=== PATIENT | female | born 1950 | race Caucasian/White ===

== ENCOUNTER 2018-12-18 17:05 | Inpatient (IN) | payer MEDICARE, OTHER ==
--- NOTE | 2018-12-18 17:43 | CT ---
Head CT Technique: Multiple axial sections through the brain were obtained. Intravenous contrast was not utilized. Comparison: No prior intracranial imaging is available. Findings: Ventricles along with basal cisterns and sulci over the convexities are within normal limits. Symmetric low density findings are seen within both basal ganglia. These may represent old lacunar infarcts versus prominent perivascular spaces. No other abnormal parenchymal densities are seen. No evidence of intracranial hemorrhage. No midline shift or mass effect is seen. Bone window settings were reviewed which shows retention cyst or mucosal thickening within the anterior right ethmoid sinus which is felt to be chronic. No acute sinus findings are seen. No acute calvarial abnormality is identified. Impression: 1. Basal ganglia findings which are most likely chronic as noted above. 2. Sinus finding also felt to be chronic. 3. No acute intracranial abnormality is appreciated. If patient's symptoms warrant, MRI could then be considered to further evaluate. Diagnostic code #2
--- NOTE | 2018-12-18 18:43 | EDM.PDOC ---
ED HPI GENERAL MEDICAL PROBLEM - General Chief Complaint: Neuro Symptoms/Deficits Stated Complaint: SOB NUMBNESS IN LEGS Time Seen by Provider: 12/18/18 18:42 - History of Present Illness INITIAL COMMENTS - FREE TEXT/NARRATIVE: 67-year-old male presents emergency room with right-sided weakness At out for 40 this afternoon the patient developed some subtle weakness on the right side making a little more challenging for her to do fine motor and balance things. She noticed that she had some right sided facial numbness and that her speech was altered winter trying to write this was a little more challenging. Patient has no prior history of CVA or neurologic problems. She's had some blood pressure problems but nothing as high as she is when she presented here. She has not had any associated chest pain chest pressure no recent illnesses. The patient recently flew back into town yesterday but is otherwise felt well. She's had no chest pain chest pressure at time she's had some palpitations. When she tries to speak sometimes it feels like her words don 't come out as organized and is quickly as she is used to. - Related Data Allergies Allergy/AdvReac Type Severity Reaction Status Date / Time Latex, Natural Rubber Allergy Rash Verified 12/18/18 17:50 Home Meds: Home Meds . [No Known Home Meds] 12/18/18 [History] Past Medical History HEENT History: Reports: Impaired Vision Other HEENT History: wears eyeglasses. 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 Other Endocrine/Metabolic History: states was pre-diabetic and lost wt. Hematologic History: Reports: Anemia Dermatologic History: Reports: Psoriasis - Infectious Disease History Infectious Disease History: Reports: Chicken Pox, Measles, Mumps, Pertussis ( Whooping Cough) - Past Surgical History GI Surgical History: Reports: Colonoscopy Female Surgical History: Reports: Hysterectomy Social & Family History - Tobacco Use Smoking Status *Q: Never Smoker Second Hand Smoke Exposure: No - Caffeine Use Caffeine Use: Reports: None - Recreational Drug Use Recreational Drug Use: No ED ROS GENERAL - Review of Systems Review Of Systems: See Below Constitutional: Reports: No Symptoms HEENT: Reports: No Symptoms, Other Respiratory: Reports: No Symptoms (No vision changes) Cardiovascular: Reports: No Symptoms Endocrine: Reports: No Symptoms GI/Abdominal: Reports: No Symptoms : Reports: No Symptoms Skin: Reports: No Symptoms Neurological: Reports: Pre-Existing Deficit, Weakness, Change in Speech. Denies : Headache Psychiatric: Reports: No Symptoms ED EXAM, NEURO - Physical Exam Exam: See Below Exam Limited By: No Limitations General Appearance: Alert, No Apparent Distress Ears: Normal External Exam, Normal Canal, Hearing Grossly Normal, Normal TMs Nose: Normal Inspection, Normal Mucosa, No Blood Throat/Mouth: Normal Inspection, Normal Lips, Normal Teeth, Normal Gums, Normal Oropharynx, Normal Voice, No Airway Compromise Head Exam: Atraumatic, Normocephalic Neck: Normal Inspection, Supple, Non-Tender, Full Range of Motion Cardiovascular: Normal Peripheral Pulses, Regular Rate, Rhythm, No Edema, No Gallop, No JVD, No Murmur, No Rub GI/Abdominal: Normal Bowel Sounds, Soft, Non-Tender, No Organomegaly, No Distention, No Abnormal Bruit, No Mass Neurological: Alert, Normal Mood/Affect, Normal Dorsiflexion, CN II-XII Intact, Normal Plantar Flexion, Normal Gait, Normal Reflexes, No Motor/Sensory Deficits , Oriented x 3 Back Exam: Normal Inspection. No: CVA Tenderness (L), CVA Tenderness (R) Extremities: Normal Inspection Psychiatric: Normal Affect Skin Exam: Warm, Dry, Diaphoretic EKG INTERPRETATION Rhythm: Other (Anus rate 90 with a single PVC) Rate (Beats/Min): 90 [place]: LAD-Left Euless Deviation (Borderline) P-Wave: Present ST-T: Normal QT: Normal Comparison: NA - No Prior EKG Course - Vital Signs Text/Narrative:: Case discussed with Dr. Miguel call for the stroke service at [facility] in [place] with an NIH score of 2 he does not recommend thrombolytics or transfer at this point just routine stroke care and treatment of her hypertension. Last Recorded V/S: Last Vital Signs Temp 36.6 C 12/18/18 17:11 Pulse 98 12/18/18 17:11 Resp 18 12/18/18 17:11 BP 210/107 H 12/18/18 17:11 Pulse Ox 100 12/18/18 17:11 - Orders/Labs/Meds Orders: Active Orders 24 hr Category Date Time Status EKG 12 Lead [EKG Documentation Completion] [RC] STAT Care 12/18/18 18:39 Active Chest 1V Frontal [CR] Stat Exams 12/18/18 18:53 Taken Labs: Laboratory Tests 12/18/18 12/18/18 12/18/18 Range/Units 17:15 17:15 17:15 WBC 8.45 (3.98-10.04) K/mm3 RBC 4.75 (3.98-5.22) M/mm3 Hgb 14.4 (11.2-15.7) gm/L Hct 43.6 (34.1-44.9) % MCV 91.8 (79.4-94.8) fl MCH 30.3 (25.6-32.2) pg MCHC 33.0 (32.2-35.5) g/dl RDW Std Deviation 43.5 (36.4-46.3) fL Plt Count 245 (182-369) K/mm3 MPV 10.9 (9.4-12.3) fl Neut % (Auto) 53.0 (34.0-71.1) % Lymph % (Auto) 34.7 (19.3-51.7) % Fountain % (Auto) 9.8 (4.7-12.5) % Eos % (Auto) 2.0 (0.7-5.8) Baso % (Auto) 0.4 (0.1-1.2) % Neut # (Auto) 4.48 (1.56-6.13) K/mm3 Lymph # (Auto) 2.93 (1.18-3.74) K/mm3 Fountain # (Auto) 0.83 H (0.24-0.36) K/mm3 Eos # (Auto) 0.17 (0.04-0.36) K/mm3 Baso # (Auto) 0.03 (0.01-0.08) K/mm3 PT (9.5-12.1) SECONDS INR APTT (24-31) SECONDS Sodium 142 (136-145) mEq/L Potassium 3.6 (3.5-5.1) mEq/L Chloride 105 (98-107) mEq/L Carbon Dioxide 24 (21-32) mEq/L Anion Gap 16.6 H (5-15) BUN 15 (7-18) mg/dL Creatinine 0.8 (0.55-1.02) mg/dL Est Cr Clr Drug Dosing TNP Estimated GFR (MDRD) > 60 (>60) mL/min BUN/Creatinine Ratio 18.8 H (14-18) Glucose 113 (80-115) mg/dL POC Glucose 107 (80-115) mg/dL Calcium 9.3 (8.5-10.1) mg/dL Total Bilirubin 0.4 (0.2-1.0) mg/dL AST 23 (15-37) U/L ALT 63 H (14-59) U/L Alkaline Phosphatase 104 (46-116) U/L Troponin I (0.00-0.056) ng/mL Total Protein 8.0 (6.4-8.2) g/dl Albumin 4.1 (3.4-5.0) g/dl Globulin 3.9 gm/dL Albumin/Globulin Ratio 1.1 (1-2) 12/18/18 12/18/18 Range/Units 17:15 17:15 WBC (3.98-10.04) K/mm3 RBC (3.98-5.22) M/mm3 Hgb (11.2-15.7) gm/L Hct (34.1-44.9) % MCV (79.4-94.8) fl MCH (25.6-32.2) pg MCHC (32.2-35.5) g/dl RDW Std Deviation (36.4-46.3) fL Plt Count (182-369) K/mm3 MPV (9.4-12.3) fl Neut % (Auto) (34.0-71.1) % Lymph % (Auto) (19.3-51.7) % Fountain % (Auto) (4.7-12.5) % Eos % (Auto) (0.7-5.8) Baso % (Auto) (0.1-1.2) % Neut # (Auto) (1.56-6.13) K/mm3 Lymph # (Auto) (1.18-3.74) K/mm3 Fountain # (Auto) (0.24-0.36) K/mm3 Eos # (Auto) (0.04-0.36) K/mm3 Baso # (Auto) (0.01-0.08) K/mm3 PT 9.8 (9.5-12.1) SECONDS INR < 0.93 APTT 26 (24-31) SECONDS Sodium (136-145) mEq/L Potassium (3.5-5.1) mEq/L Chloride (98-107) mEq/L Carbon Dioxide (21-32) mEq/L Anion Gap (5-15) BUN (7-18) mg/dL Creatinine (0.55-1.02) mg/dL Est Cr Clr Drug Dosing Estimated GFR (MDRD) (>60) mL/min BUN/Creatinine Ratio (14-18) Glucose (80-115) mg/dL POC Glucose (80-115) mg/dL Calcium (8.5-10.1) mg/dL Total Bilirubin (0.2-1.0) mg/dL AST (15-37) U/L ALT (14-59) U/L Alkaline Phosphatase (46-116) U/L Troponin I < 0.017 (0.00-0.056) ng/mL Total Protein (6.4-8.2) g/dl Albumin (3.4-5.0) g/dl Globulin gm/dL Albumin/Globulin Ratio (1-2) Meds: Medications Discontinued Medications Generic Name Dose Route Start Last Admin Trade Name Freq PRN Reason Stop Dose Admin Aspirin 324 mg 12/18/18 18:58 12/18/18 19:30 Aspirin PO 12/18/18 18:59 324 mg ONETIME ONE Administration Labetalol HCl 10 mg 12/18/18 18:54 12/18/18 19:39 Normodyne IVPUSH 12/18/18 18:55 10 mg ONETIME ONE Administration Protocol - Re-Assessments/Exams Free Text/Narrative Re-Assessment/Exam: 12/18/18 19:48 Chest x-ray is rotated otherwise no acute changes. Case discussed with Dr. Miguel at [facility] who does not recommend TPA or transfer at this point with the NIH score of 2 patient is given aspirin and return to lower her blood pressure slightly with a systolic at or above 200 12/18/18 19:58 Since case discussed with Dr. Wagner who will assume care. Departure - Departure Time of Disposition: 19:58 Disposition: Refer to Observation Clinical Impression: CVA (cerebral vascular accident) - Discharge Information Referrals: PCP,Not In Area [Primary Care Provider] - Forms: ED Department Discharge - My Orders Last 24 Hours: My Active Orders 12/18/18 18:39 EKG 12 Lead [EKG Documentation Completion] [RC] STAT 12/18/18 18:53 Chest 1V Frontal [CR] Stat - Assessment/Plan Last 24 Hours: My Active Orders 12/18/18 18:39 EKG 12 Lead [EKG Documentation Completion] [RC] STAT 12/18/18 18:53 Chest 1V Frontal [CR] Stat
[2018-12-18] MEDS ORDERED: Labetalol 100 MG/20 ML MDV IVPUSH ONE (18:54)
[2018-12-18] MEDS ORDERED: Aspirin 81 MG Tab.Chew PO ONE (18:58)
[2018-12-18] MEDS ORDERED: Metoprolol Tartrate 5 MG/5 ML SDV IVPUSH PRN (21:32)
[2018-12-18] MEDS ORDERED: hydrALAZINE 20 MG/ML SDV IVPUSH PRN (21:32)
[2018-12-18] MEDS ORDERED: HYDROmorphone 0.5 MG/0.5 ML Syringe IVPUSH PRN (21:34)
[2018-12-18] MEDS ORDERED: LORazepam 2 MG/ML SDV IV PRN (21:34)
[2018-12-18] MEDS ORDERED: Albuterol/Ipratropium 3.0-0.5 MG/3 ML Neb Soln NEB PRN (21:34)
[2018-12-18] MEDS ORDERED: Ondansetron 4 MG/2 ML SDV IV PRN (21:34)
[2018-12-18] MEDS ORDERED: Acetaminophen 325 MG Tab PO PRN (21:34)
[2018-12-18] MEDS ORDERED: Polyethylene Glycol 3350 Powder 17 GM Packet PO PRN (21:34)
[2018-12-18] MEDS ORDERED: Acetaminophen/HYDROcodone 325-5 MG Tab PO PRN (21:34)
[2018-12-18] MEDS ORDERED: Bisacodyl 5 MG Tab PO PRN (21:34)
[2018-12-18] MEDS ORDERED: Docusate Sodium 100 MG Cap PO PRN (21:34)
[2018-12-18] MEDS ORDERED: Temazepam 7.5 MG Cap PO PRN (21:34)
[2018-12-18] MEDS ORDERED: Labetalol 100 MG/20 ML MDV IVPUSH PRN ×2 (22:25→22:38)
--- NOTE | 2018-12-18 22:27 | PCM.SN ---
- Free Text/Narrative Note: Patient seen and examined at beside. She is at little bit better than on presentation. However she still has tingling on right lip, hand and foot. Her NIH score is 2. Her risk factors for stroke are HTN, HLD, Pre-Diabetes and Class I Obesity. Her initial work up are fairly unremarkable. Head CT scan showed no acute abnormal findings. She states, she lost 35lbs in the past 3 months so her PCP stopped some of her medications to include her blood pressure medications. Her blood pressure on admission shows 201/107 mmHg. Informed patient the likely caused of her stroke is her uncontrolled hypertension. Goal is reduction of pressure at least 15% in the first 24hr after onset of stroke and treat it either with labetalol or nicardipine if at 220/120 mmHg or higher. Offered full work of stroke with Brain MRI, Carotid U/S and 2D echo; she agreed to it. Her case was discussed with Dr. Miguel in [facility] who did not recommend TPA or transfer due to low NIH score of 2. 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 She will have beside swallow eval and if she able to pass it, we will discontinue NPO status. Patient received Labetolol and ASA in ED for initial treatment. She is being admitted under observation for further work up.
[2018-12-18] MEDS: Potassium Chloride 20 MEQ Tab.ER PO SCH (22:39)
[2018-12-19] MEDS: Potassium Chloride 20 MEQ Tab.ER PO SCH (02:40)
[2018-12-19] MEDS ORDERED: Hydrochlorothiazide 12.5 MG Cap PO SCH (06:00)
--- NOTE | 2018-12-19 06:22 | CR ---
Chest: Portable view of the chest was obtained. Comparison: No prior chest x-ray. Heart is enlarged. Upper mediastinum is felt to be within normal limits for portable technique. Lungs are clear with no acute parenchymal change. Bony structures are grossly intact. Impression: 1. Mild cardiomegaly. Nothing acute is appreciated on portable chest x-ray. Diagnostic code #2
[2018-12-19 07:02] LABS: HEMOGLOBIN A1C 6.2 % (4.50-6.20)
--- NOTE | 2018-12-19 07:08 | PCM.HP ---
H&P History of Present Illness - General Date of Service: 12/19/18 Admit Problem/Dx: Admission Diagnosis/Problem Admission Diagnosis/Problem Cerebrovascular accident Source of Information: Patient, Old Records, Provider, RN, RN Notes Reviewed History Limitations: Reports: No Limitations - History of Present Illness Initial Comments - Free Text/Narative: Mariella Melendez is a 67yo female who presented to our on the evening of with weakness the right side. She noted was a little more challenging for her to do fine motor movements and balance things she also noted some right- sided facial numbness and her speech was altered. She noted difficulty while writing as well. No history of CVA or neurologic problems. She's had hypertension the past but has never been as high as it was in the ED. No chest pain, chest pressure, or recent illness. She recently flew back into town yesterday. She reports if she tries to speak sometimes the words don't come out as organized worse quickly as they used to for her. 12-lead EKG is obtained showing a sinus rate at 90 with a single PVC. There is borderline left axis deviation no ST segment abnormalities. Temp is 36.6 Celsius. Pulse 98. Respirations 18. Blood pressure 210/107. Pulse ox 100. Labs are drawn: CBC is normal at 8.45. Hemoglobin 14.4. Hematocrit 43.6. She is normocytic. Blood sugar 245,000. Neutrophils are normal at 53%. Sodium is 142. Potassium 3.6. Chloride 105. Carbon Dioxide 24. Anion gap was high at 16.6. BUN is Creatinine 0.8. GFR greater than 60. Glucose is 113. Calcium 9.3. Total bilirubin 0.4. AST is 23, ALT 63, alkaline phosphatase 104. Protein is 8.0. Albumin 4.1. PT is 9.8. INR is less than 0.93. Sodium is 26. Troponin is less than 0.017. She is given 324 mg by mouth of aspirin and labetalol 10 mg IV push for her blood pressure. Chest x-rays obtained showing mild cardiomegaly and nothing acute. Head CT is obtained and interpreted by Dr. Trotter as "1. Basal ganglia findings which are most likely chronic as noted above. 2. Sinus findings were also felt to be chronic. 3. No acute intracranial abnormality is appreciated. If patient's symptoms warrant MRI could then be considered to further evaluate." E provider contacted Dr. Devries , on-call provider for stroke service at [facility] in [place]. He noted with NIH score of 2 at thrombolytics or transfer would not be indicated. He reports just provide routine stroke care and treatment of her hypertension. She carries a history of HLD, hypertension, recurrent UTIs, "prediabetes", anemia, psoriasis. She reportedly recently lost 35 pounds of weight and her provider took her off all of her medications including her blood pressure medications. She was never a smoker. Her PCP is not in the area as she is visiting from [place]. - Related Data Allergies/Adverse Reactions: Allergies Allergy/AdvReac Type Severity Reaction Status Date / Time Penicillins Allergy Unknown Other Verified 12/18/18 21:45 shellfish derived Allergy Unknown Other Verified 12/18/18 21:45 Latex, Natural Rubber Allergy Rash Verified 12/18/18 17:50 Home Medications: Home Meds . [No Known Home Meds] 12/18/18 [History] Past Medical History HEENT History: Reports: Impaired Vision Other HEENT History: wears eyeglasses. Cardiovascular History: Reports: High Cholesterol, Hypertension Genitourinary History: Reports: UTI, Recurrent SOCIAL PSYCHOLOGIST History: Reports: Musculoskeletal History: Reports: Fracture, Other (See Below) Other Musculoskeletal History: states broke arm as young child, was sedated and casted. Other Endocrine/Metabolic History: states was pre-diabetic and lost wt. Hematologic History: Reports: Anemia Dermatologic History: Reports: Psoriasis - Infectious Disease History Infectious Disease History: Reports: Chicken Pox, Measles, Mumps, Pertussis ( Whooping Cough) - Past Surgical History GI Surgical History: Reports: Colonoscopy Female Surgical History: Reports: Hysterectomy Social & Family History - Family History Family Medical History: Noncontributory - Tobacco Use Smoking Status *Q: Never Smoker Second Hand Smoke Exposure: No - Caffeine Use Caffeine Use: Reports: None - Recreational Drug Use Recreational Drug Use: No H&P Review of Systems - Review of Systems: Review Of Systems: See Below General: Reports: No Symptoms. Denies: Fever, Malaise, Weakness, Fatigue HEENT: Reports: No Symptoms. Denies: Headaches, Sore Throat Pulmonary: Reports: No Symptoms. Denies: Shortness of Breath, Wheezing, Pleuritic Chest Pain, Cough, Sputum Cardiovascular: Reports: No Symptoms. Denies: Chest Pain, Palpitations, Dyspnea on Exertion, Edema Gastrointestinal: Reports: No Symptoms. Denies: Abdominal Pain, Constipation, Diarrhea, Nausea, Vomiting Genitourinary: Reports: No Symptoms. Denies: Pain Musculoskeletal: Reports: No Symptoms Skin: Reports: No Symptoms. Denies: Cyanosis Psychiatric: Reports: No Symptoms. Denies: Confusion Neurological: Reports: Other (Reports she still feels like she has very very minor delay on right leg. ). Denies: Confusion, Dizziness, Headache, Numbness, Seizure, Tingling, Tremors, Trouble Speaking, Difficulty Walking, Weakness, Change in Speech, Gait Disturbance Hematologic/Lymphatic: Reports: No Symptoms Immunologic: Reports: No Symptoms Exam - Exam Exam: See Below - Vital Signs Vital Signs: Last Vital Signs Temp 97.9 F 12/19/18 05:30 Pulse 77 12/19/18 05:30 Resp 22 H 12/19/18 05:30 BP 160/83 H 12/19/18 05:30 Pulse Ox 95 12/19/18 05:30 Weight: 179 lb 3.2 oz - Exam Quality Assessment: DVT Prophylaxis General: Alert, Oriented, Cooperative. No: Mild Distress HEENT: Conjunctiva Clear, EACs Clear, EOMI, Hearing Intact, Mucosa Moist & [place] , Posterior Pharynx Clear, PERRLA Neck: Supple, Trachea Midline Lungs: Clear to Auscultation, Normal Respiratory Effort Cardiovascular: Regular Rate, Regular Rhythm GI/Abdominal Exam: Normal Bowel Sounds, Soft, Non-Tender, No Organomegaly, No Distention (Female) Exam: Deferred Rectal (Female) Exam: Deferred Back Exam: Normal Inspection, Full Range of Motion Extremities: Normal Inspection, Normal Range of Motion, Non-Tender, No Pedal Edema, Normal Capillary Refill Peripheral Pulses: 3+: Radial (L), Radial (R), Dorsalis Pedis (L), Dorsalis Pedis (R) Skin: Warm, Dry, Intact Neurological: Cranial Nerves Intact (grossly ), Strength Equal Bilateral, Normal Gait, Normal Speech, Normal Tone, Sensation Intact. No: Focal Deficit Neuro Extensive - Mental Status: Alert, Oriented x3, Normal Mood/Affect, Memory Intact Neuro Extensive - Motor, Sensory, Reflexes: No: Abnormal Gait, Tongue Deviation (L), Tongue Deviation (R), Receptive Aphasia, Expressive Aphasia, Total Aphasia , Facial palsy (L), Facial Palsy (R), Facial Palsy w Forehead, Facial Palsy wo Forehead, Pronator Drift (R), Pronator Drift (L), Abnormal Sensation, Abnormal Motor, Tremor, Motor/Sensory Deficits - Patient Data Lab Results Last 24 hrs: Laboratory Results - last 24 hr 12/18/18 12/18/18 12/18/18 Range/Units 17:15 17:15 17:15 WBC 8.45 (3.98-10.04) K/mm3 RBC 4.75 (3.98-5.22) M/mm3 Hgb 14.4 (11.2-15.7) gm/L Hct 43.6 (34.1-44.9) % MCV 91.8 (79.4-94.8) fl MCH 30.3 (25.6-32.2) pg MCHC 33.0 (32.2-35.5) g/dl RDW Std Deviation 43.5 (36.4-46.3) fL Plt Count 245 (182-369) K/mm3 MPV 10.9 (9.4-12.3) fl Neut % (Auto) 53.0 (34.0-71.1) % Lymph % (Auto) 34.7 (19.3-51.7) % [place] % (Auto) 9.8 (4.7-12.5) % Eos % (Auto) 2.0 (0.7-5.8) Baso % (Auto) 0.4 (0.1-1.2) % Neut # (Auto) 4.48 (1.56-6.13) K/mm3 Lymph # (Auto) 2.93 (1.18-3.74) K/mm3 [place] # (Auto) 0.83 H (0.24-0.36) K/mm3 Eos # (Auto) 0.17 (0.04-0.36) K/mm3 Baso # (Auto) 0.03 (0.01-0.08) K/mm3 PT (9.5-12.1) SECONDS INR APTT (24-31) SECONDS Sodium 142 (136-145) mEq/L Potassium 3.6 (3.5-5.1) mEq/L Chloride 105 (98-107) mEq/L Carbon Dioxide 24 (21-32) mEq/L Anion Gap 16.6 H (5-15) BUN 15 (7-18) mg/dL Creatinine 0.8 (0.55-1.02) mg/dL Est Cr Clr Drug Dosing TNP Estimated GFR (MDRD) > 60 (>60) mL/min BUN/Creatinine Ratio 18.8 H (14-18) Glucose 113 (80-115) mg/dL POC Glucose 107 (80-115) mg/dL Calcium 9.3 (8.5-10.1) mg/dL Magnesium (1.8-2.4) mg/dl Total Bilirubin 0.4 (0.2-1.0) mg/dL AST 23 (15-37) U/L ALT 63 H (14-59) U/L Alkaline Phosphatase 104 (46-116) U/L Troponin I (0.00-0.056) ng/mL Total Protein 8.0 (6.4-8.2) g/dl Albumin 4.1 (3.4-5.0) g/dl Globulin 3.9 gm/dL Albumin/Globulin Ratio 1.1 (1-2) Triglycerides (<150) mg/dL Cholesterol (<200) mg/dL LDL Cholesterol Direct (<100) mg/dL HDL Cholesterol (40-59) mg/dL 12/18/18 12/18/18 12/19/18 Range/Units 17:15 17:15 05:45 WBC 9.36 (3.98-10.04) K/mm3 RBC 4.24 (3.98-5.22) M/mm3 Hgb 12.8 (11.2-15.7) gm/L Hct 39.3 (34.1-44.9) % MCV 92.7 (79.4-94.8) fl MCH 30.2 (25.6-32.2) pg MCHC 32.6 (32.2-35.5) g/dl RDW Std Deviation 43.2 (36.4-46.3) fL Plt Count 233 (182-369) K/mm3 MPV 10.5 (9.4-12.3) fl Neut % (Auto) 57.9 (34.0-71.1) % Lymph % (Auto) 30.7 (19.3-51.7) % [place] % (Auto) 9.8 (4.7-12.5) % Eos % (Auto) 1.3 (0.7-5.8) Baso % (Auto) 0.2 (0.1-1.2) % Neut # (Auto) 5.42 (1.56-6.13) K/mm3 Lymph # (Auto) 2.87 (1.18-3.74) K/mm3 [place] # (Auto) 0.92 H (0.24-0.36) K/mm3 Eos # (Auto) 0.12 (0.04-0.36) K/mm3 Baso # (Auto) 0.02 (0.01-0.08) K/mm3 PT 9.8 (9.5-12.1) SECONDS INR < 0.93 APTT 26 (24-31) SECONDS Sodium (136-145) mEq/L Potassium (3.5-5.1) mEq/L Chloride (98-107) mEq/L Carbon Dioxide (21-32) mEq/L Anion Gap (5-15) BUN (7-18) mg/dL Creatinine (0.55-1.02) mg/dL Est Cr Clr Drug Dosing Estimated GFR (MDRD) (>60) mL/min BUN/Creatinine Ratio (14-18) Glucose (80-115) mg/dL POC Glucose (80-115) mg/dL Calcium (8.5-10.1) mg/dL Magnesium (1.8-2.4) mg/dl Total Bilirubin (0.2-1.0) mg/dL AST (15-37) U/L ALT (14-59) U/L Alkaline Phosphatase (46-116) U/L Troponin I < 0.017 (0.00-0.056) ng/mL Total Protein (6.4-8.2) g/dl Albumin (3.4-5.0) g/dl Globulin gm/dL Albumin/Globulin Ratio (1-2) Triglycerides (<150) mg/dL Cholesterol (<200) mg/dL LDL Cholesterol Direct (<100) mg/dL HDL Cholesterol (40-59) mg/dL 12/19/18 Range/Units 05:45 WBC (3.98-10.04) K/mm3 RBC (3.98-5.22) M/mm3 Hgb (11.2-15.7) gm/L Hct (34.1-44.9) % MCV (79.4-94.8) fl MCH (25.6-32.2) pg MCHC (32.2-35.5) g/dl RDW Std Deviation (36.4-46.3) fL Plt Count (182-369) K/mm3 MPV (9.4-12.3) fl Neut % (Auto) (34.0-71.1) % Lymph % (Auto) (19.3-51.7) % [place] % (Auto) (4.7-12.5) % Eos % (Auto) (0.7-5.8) Baso % (Auto) (0.1-1.2) % Neut # (Auto) (1.56-6.13) K/mm3 Lymph # (Auto) (1.18-3.74) K/mm3 [place] # (Auto) (0.24-0.36) K/mm3 Eos # (Auto) (0.04-0.36) K/mm3 Baso # (Auto) (0.01-0.08) K/mm3 PT (9.5-12.1) SECONDS INR APTT (24-31) SECONDS Sodium 141 (136-145) mEq/L Potassium 4.2 (3.5-5.1) mEq/L Chloride 106 (98-107) mEq/L Carbon Dioxide 25 (21-32) mEq/L Anion Gap 14.2 (5-15) BUN 12 (7-18) mg/dL Creatinine 0.7 (0.55-1.02) mg/dL Est Cr Clr Drug Dosing 62.53 Estimated GFR (MDRD) > 60 (>60) mL/min BUN/Creatinine Ratio 17.1 (14-18) Glucose 121 H (80-115) mg/dL POC Glucose (80-115) mg/dL Calcium 8.7 (8.5-10.1) mg/dL Magnesium 2.2 (1.8-2.4) mg/dl Total Bilirubin (0.2-1.0) mg/dL AST (15-37) U/L ALT (14-59) U/L Alkaline Phosphatase (46-116) U/L Troponin I (0.00-0.056) ng/mL Total Protein (6.4-8.2) g/dl Albumin (3.4-5.0) g/dl Globulin gm/dL Albumin/Globulin Ratio (1-2) Triglycerides 56 (<150) mg/dL Cholesterol 215 H (<200) mg/dL LDL Cholesterol Direct 142 H* (<100) mg/dL HDL Cholesterol 75.0 H (40-59) mg/dL Result Diagrams: 12/19/18 05:45 12/19/18 05:45 - Problem List (1) CVA (cerebral vascular accident) SNOMED Code(s): 965828805 ICD Code: I63.9 - CEREBRAL INFARCTION, UNSPECIFIED Status: Acute Priority : High Current Visit: Yes Qualifiers: CVA mechanism: unspecified Qualified Code(s): I63.9 - Cerebral infarction, unspecified (2) HLD (hyperlipidemia) SNOMED Code(s): 29356473 ICD Code: E78.5 - HYPERLIPIDEMIA, UNSPECIFIED Status: Acute Priority: High Current Visit: Yes Qualifiers: Hyperlipidemia type: unspecified Qualified Code(s): E78.5 - Hyperlipidemia , unspecified (3) HTN (hypertension) SNOMED Code(s): 06540261 ICD Code: I10 - ESSENTIAL (PRIMARY) HYPERTENSION Status: Acute Priority: High Current Visit: Yes Qualifiers: Hypertension type: unspecified Qualified Code(s): I10 - Essential (primary ) hypertension Problem List Initiated/Reviewed/Updated: Yes Orders Last 24hrs: Active Orders 24 hr Category Date Time Status Patient Status [ADT] Routine ADT 12/18/18 22:12 Active Antiembolic Devices [RC] Care 12/18/18 21:35 Active Height and Weight [RC] 04 Care 12/18/18 21:34 Active Intake and Output [RC] 04,16 Care 12/18/18 21:34 Active VTE/DVT Education [RC] Care 12/18/18 21:34 Active Vital Signs [RC] Q4HR Care 12/18/18 21:34 Active Consult to Case Management/Supervisory Forester [CONS] Cons 12/18/18 21:34 Active Routine Consult to Spiritual Care [CONS] Routine Cons 12/18/18 21:34 Active OT Evaluation and Treatment [CONS] Routine Cons 12/18/18 21:34 Active PT Evaluation and Treatment [CONS] Routine Cons 12/18/18 21:34 Active RIPRAP MAN Evaluation and Treatment [CONS] Routine Cons 12/18/18 21:34 Active Heart Healthy Diet [DIET] Diet 12/18/18 Dinner Active Brain wo Cont [MR] Routine Exams 12/19/18 07:00 Ordered Carotid Comp [US] Routine Exams 12/19/18 07:00 Ordered Echo Comp wo Cont [US] Routine Exams 12/19/18 07:00 Ordered A1C [GLYCOSYLATED HEMOGLOBIN,HGBA1C] [CHEM] AM Lab 12/19/18 05:45 Received BASIC METABOLIC PANEL,BMP [CHEM] AM Lab 12/20/18 05:11 Ordered BASIC METABOLIC PANEL,BMP [CHEM] AM Lab 12/21/18 05:11 Ordered CBC WITH AUTO DIFF [HEME] AM Lab 12/20/18 05:11 Ordered CBC WITH AUTO DIFF [HEME] AM Lab 12/21/18 05:11 Ordered MAGNESIUM [CHEM] AM Lab 12/20/18 05:11 Ordered MAGNESIUM [CHEM] AM Lab 12/21/18 05:11 Ordered Acetaminophen [Tylenol] Med 12/18/18 21:34 Active 650 mg PO Q4H PRN Acetaminophen/HYDROcodone [Cadet 325-5 MG] Med 12/18/18 21:34 Active 1 tab PO Q4H PRN Albuterol/Ipratropium [DuoNeb 3.0-0.5 MG/3 ML] Med 12/18/18 21:34 Active 3 ml NEB Q4H PRN Aspirin [Halfprin] Med 12/19/18 09:00 Active 81 mg PO DAILY Bisacodyl [Dulcolax] Med 12/18/18 21:34 Active 5 mg PO DAILY PRN Docusate Sodium [Colace] Med 12/18/18 21:34 Active 100 mg PO BID PRN Docusate Sodium/Sennosides [Senna Plus] Med 12/18/18 21:34 Active 1 tab PO BID PRN HYDROmorphone [Dilaudid] Med 12/18/18 21:34 Active 0.25 mg IVPUSH Q2H PRN LORazepam [Ativan] Med 12/18/18 21:34 Active 0.5 mg IV Q6H PRN Labetalol [Normodyne] Med 12/18/18 22:38 Active 10 mg IVPUSH Q6H PRN Lisinopril [Prinivil] Med 12/19/18 09:00 Active 2.5 mg PO DAILY Metoprolol Tartrate [Lopressor] Med 12/18/18 21:32 Active 5 mg IVPUSH Q4H PRN Ondansetron [Zofran] Med 12/18/18 21:34 Active 4 mg IV Q6H PRN Pharmacy to Dose - Magnesium R [Pharmacy to Dose - Med 12/18/18 21:45 Active Magnesium Replacement] 0 dose .XX ASDIRECTED PRN Pharmacy to Dose - Potassium R [Pharmacy to Dose - Med 12/18/18 21:45 Active Potassium Replacement] 0 dose .XX ASDIRECTED PRN Polyethylene Glycol 3350 [MiraLAX] Med 12/18/18 21:34 Active 17 gm PO DAILY PRN Temazepam [Restoril] Med 12/18/18 21:34 Active 7.5 mg PO BEDTIME PRN hydroCHLOROthiazide Med 12/19/18 09:00 Active 12.5 mg PO DAILY Sequential Compression Device [OM.PC] Per Unit Routine Oth 12/18/18 21:34 Ordered Resuscitation Status Routine Resus Stat 12/18/18 22:00 Ordered Medication Orders Acetaminophen (Tylenol) 650 mg PO Q4H PRN PRN Reason: Pain (Mild 1-3)/fever Hydrocodone Bitart/Acetaminophen (Cadet 325-5 Mg) 1 tab PO Q4H PRN PRN Reason: Pain (moderate 4-6) Albuterol/Ipratropium (Duoneb 3.0-0.5 Mg/3 Ml) 3 ml NEB Q4H PRN PRN Reason: Shortness Of Breath/wheezing Aspirin (Halfprin) 81 mg PO DAILY LYN Bisacodyl (Dulcolax) 5 mg PO DAILY PRN PRN Reason: Constipation Docusate Sodium (Colace) 100 mg PO BID PRN PRN Reason: Constipation Hydrochlorothiazide (Hydrochlorothiazide) 12.5 mg PO DAILY LYN Hydromorphone HCl (Dilaudid) 0.25 mg IVPUSH Q2H PRN PRN Reason: Pain (severe 7-10) Labetalol HCl (Normodyne) 10 mg IVPUSH Q6H PRN; Protocol PRN Reason: Hypertension Lisinopril (Prinivil) 2.5 mg PO DAILY LYN Lorazepam (Ativan) 0.5 mg IV Q6H PRN PRN Reason: Anxiety Magnesium Sulfate (Pharmacy To Dose - Magnesium Replacement) 0 dose .XX ASDIRECTED PRN PRN Reason: RX TO WATCH MAG Metoprolol Tartrate (Lopressor) 5 mg IVPUSH Q4H PRN PRN Reason: Tachycardia Ondansetron HCl (Zofran) 4 mg IV Q6H PRN PRN Reason: Nausea/Vomiting Polyethylene Glycol (Miralax) 17 gm PO DAILY PRN PRN Reason: Constipation Potassium Chloride (Pharmacy To Dose - Potassium Replacement) 0 dose .XX ASDIRECTED PRN PRN Reason: RX TO WATCH K Senna/Docusate Sodium (Senna Plus) 1 tab PO BID PRN PRN Reason: Constipation Temazepam (Restoril) 7.5 mg PO BEDTIME PRN PRN Reason: Sleep Assessment/Plan Comment:: I/P: Acute: CVA -Reports subtle weakness on right side with difficulty in balance and fine motor movements -Also notes mild aphasia -Hx/o HLD and HTN - recently medications were stopped by PCP / 35lb weight loss -No hx/o CVA or neurologic problems; No infectious symptoms -CT Scan in ED on 12/18/18: * 1. Basal ganglia findings which are most likely chronic as noted above. * 2. Sinuses findings also felt to be chronic. * 3. No acute intracranial abnormality is appreciated. If patient symptoms wore MRI could be considered to further evaluate. -ED provider contacted Dr. Miguel, special education secretary neurologist for [facility] stroke center * NIH score of 2 - recommended routine stroke care * [place] transfer and TPA were not indicated -12-lead EKG shows Sinus rhythm with single PVC -325mg ASA given in ED - Continue at 81mg -BP 210/107 in ED - Labetalol 10mg IVP given with good response -MRI 12/19/18: * 1. Diffusion abdomen IN the left thalamus compatible with relatively acute infarct. This shows increased signal on the T2 FLAIR compatible with nonreversible change. * 2. Multiple areas of increased signal within the subcortical and periventricular white matter likely representing small vessel ischemic demyelination change. * 3. No additional abnormalities appreciated. -Carotid artery US 12/19/18: No plaque identified. No abnormality noted. -Echo obtained 12/19/18 - pending -RIPRAP MAN Consult: No concerns -Lipid panel: Triglycerides 56, total cholesterol 215, LDL 142, HDL 75. -Reports she was on Zocor, name brand prior. She had tried simvastatin which "did not work" and was switched to name brand Zocor with good results. -Start crestor 10mg at bedtime -PT/OT: No concerns -A1C 6.2 -Passed nursing bedside swallow eval so will remove NPO status -Neuro checks as ordered HTN -Acute on chronic -Permissive HTN for first 24 hrs -BP 210/107 in ED - Labetalol 10mg IVP given with good response -BP meds were recently discontinued by PCP per patient -Start HCTZ 12.5mg daily -Lisinopril 2.5mg daily -PRN HTN meds as ordered Chronic: HTN HLD Recurrent UTIs "pre-diabetic" Anemia Psoriasis Plan: Admit to medical floor with telemetry Other orders as indicated above Routine AM labs PT/OT CM/SW for discharge planning Spiritual care consult DVT prophylaxis: SCDs Code status: CRP only; PCP: None locally - she is visiting from [place]
[2018-12-19] MEDS: Hydrochlorothiazide 12.5 MG Cap PO SCH (08:14)
[2018-12-19] MEDS: Lisinopril 2.5 MG Tab PO SCH (08:14)
[2018-12-19] MEDS: Aspirin 81 MG Tab.EC PO SCH (08:14)
[2018-12-19] MEDS ORDERED: Lisinopril 10 MG Tab PO SCH (09:00)
--- NOTE | 2018-12-19 10:37 | US ---
Carotid ultrasound: Duplex and color flow imaging was obtained of the carotid arteries. No plaque is identified. Right side: CCA has a peak systolic velocity of 0.78 m/sec. ICA has a peak systolic velocity of 0.84 m/sec and peak end-diastolic velocity of 0.19 m/sec. ECA has a peak systolic velocity of 0.90 m/sec. Vertebral artery has a peak systolic velocity of 0.52 m/sec. ICA/CCA ratio is 1.1. Left side: CCA has a peak systolic velocity of 0.97 m/sec. ICA has a peak systolic velocity of 0.88 m/sec and peak end-diastolic velocity of 0.39 m/sec. ECA has a peak systolic velocity of 0.79 m/sec. Vertebral artery has a peak systolic velocity of 0.57 m/sec. ICA/CCA ratio is 1.1. Impression: 1. No abnormality is seen on carotid ultrasound study as described above. Diagnostic code #1
--- NOTE | 2018-12-19 11:47 | MR ---
MRI brain Technique: T1 sagittal; T2, T2 FLAIR, T1 and diffusion axial; T1 coronal; gradient echo axial and coronal through the brain were obtained. Comparison: Prior head CT study of 12/18/18. Findings: Multiple areas of increased signal are seen within the subcortical and periventricular white matter. Findings noted on prior head CT studies appearing within the basal ganglia appear to represent incidental prominent perivascular spaces. Ventricles along with basal cisterns and sulci over the convexities are within normal limits. Small area of increased signal is seen on the diffusion sequence within the left thalamus which is felt compatible with fairly recent infarct. No other diffusion abnormalities are seen. Normal signal void is seen within the major cerebral arteries within the skull base. No midline shift or mass effect is seen. Impression: 1. Diffusion abnormality within the left thalamus compatible with relatively acute infarct. This shows increased signal on the T2 FLAIR compatible with nonreversible change. 2. Multiple areas of increased signal within the subcortical and periventricular white matter likely representing small vessel ischemic demyelination change. 3. No additional abnormality is appreciated. Diagnostic code #3
[2018-12-19] MEDS ORDERED: Rosuvastatin 10 MG Tab PO SCH (21:00)
--- NOTE | 2018-12-20 07:05 | PCM.DCSUM1 ---
Discharge Summary - Hospital Course HPI Initial Comments: Mariella Melendez is a 67yo female who presented to our on the evening of with weakness the right side. She noted was a little more challenging for her to do fine motor movements and balance things she also noted some right- sided facial numbness and her speech was altered. She noted difficulty while writing as well. No history of CVA or neurologic problems. She's had hypertension the past but has never been as high as it was in the ED. No chest pain, chest pressure, or recent illness. She recently flew back into town yesterday. She reports if she tries to speak sometimes the words don't come out as organized worse quickly as they used to for her. 12-lead EKG is obtained showing a sinus rate at 90 with a single PVC. There is borderline left axis deviation no ST segment abnormalities. Temp is 36.6 Celsius. Pulse 98. Respirations 18. Blood pressure 210/107. Pulse ox 100. Labs are drawn: CBC is normal at 8.45. Hemoglobin 14.4. Hematocrit 43.6. She is normocytic. Blood sugar 245,000. Neutrophils are normal at 53%. Sodium is 142. Potassium 3.6. Chloride 105. Carbon Dioxide 24. Anion gap was high at 16.6. BUN is Creatinine 0.8. GFR greater than 60. Glucose is 113. Calcium 9.3. Total bilirubin 0.4. AST is 23, ALT 63, alkaline phosphatase 104. Protein is 8.0. Albumin 4.1. PT is 9.8. INR is less than 0.93. Sodium is 26. Troponin is less than 0.017. She is given 324 mg by mouth of aspirin and labetalol 10 mg IV push for her blood pressure. Chest x-rays obtained showing mild cardiomegaly and nothing acute. Head CT is obtained and interpreted by Dr. Trotter as "1. Basal ganglia findings which are most likely chronic as noted above. 2. Sinus findings were also felt to be chronic. 3. No acute intracranial abnormality is appreciated. If patient's symptoms warrant MRI could then be considered to further evaluate." E provider contacted Dr. Devries , on-call provider for stroke service at [facility] in [place]. He noted with NIH score of 2 at thrombolytics or transfer would not be indicated. He reports just provide routine stroke care and treatment of her hypertension. She carries a history of HLD, hypertension, recurrent UTIs, "prediabetes", anemia, psoriasis. She reportedly recently lost 35 pounds of weight and her provider took her off all of her medications including her blood pressure medications. She was never a smoker. Her PCP is not in the area as she is visiting from [place]. Diagnosis: Stroke: Yes Modified Destin Scale: No Symptoms at All Modified Destin Scale Score: 0 - Discharge Data Discharge Date: 12/20/18 (Admit date: 12/20/18) Discharge Disposition: Home, Self-Care 01 Condition: Fair - Discharge Diagnosis/Problem(s) (1) CVA (cerebral vascular accident) SNOMED Code(s): 273289111 ICD Code: I63.9 - CEREBRAL INFARCTION, UNSPECIFIED Status: Acute Priority : High Current Visit: Yes Qualifiers: CVA mechanism: unspecified Qualified Code(s): I63.9 - Cerebral infarction, unspecified (2) HLD (hyperlipidemia) SNOMED Code(s): 27350590 ICD Code: E78.5 - HYPERLIPIDEMIA, UNSPECIFIED Status: Chronic Priority: High Current Visit: Yes Qualifiers: Hyperlipidemia type: mixed hyperlipidemia Qualified Code(s): E78.2 - Mixed hyperlipidemia (3) HTN (hypertension) SNOMED Code(s): 62701912 ICD Code: I10 - ESSENTIAL (PRIMARY) HYPERTENSION Status: Chronic Priority : High Current Visit: Yes Qualifiers: Hypertension type: essential hypertension Qualified Code(s): I10 - Essential (primary) hypertension - Patient Summary/Data Consults: Consultations 12/18/18 21:34 Consult to Case Management/Facilities Maintenance Manager [CONS] Routine Consult to Spiritual Care [CONS] Routine OT Evaluation and Treatment [CONS] Routine PT Evaluation and Treatment [CONS] Routine RENT CONTROL OFFICE MANAGER Evaluation and Treatment [CONS] Routine 12/19/18 09:02 Consult to Dietary [Consult to Digital Media Planner] [CONS] Routine Labs Pending at D/C: None Recommended Follow-up Testing/Procedures: Follow-up with PCP within 1 week of discharge. Hospital Course: I/P: Acute: CVA -Reports subtle weakness on right side with difficulty in balance and fine motor movements -Also notes mild aphasia initially -Hx/o HLD and HTN - recently medications were stopped by PCP 2/2 35lb weight loss -No hx/o CVA or neurologic problems; No infectious symptoms -CT Scan in ED on 12/18/18: * 1. Basal ganglia findings which are most likely chronic as noted above. * 2. Sinuses findings also felt to be chronic. * 3. No acute intracranial abnormality is appreciated. If patient symptoms wore MRI could be considered to further evaluate. -ED provider contacted Dr. Miguel, inventory control clerk neurologist for [facility] stroke center * NIH score of 2 - recommended routine stroke care * [place] transfer and TPA were not indicated -12-lead EKG shows Sinus rhythm with single PVC -325mg ASA given in ED - Continue at 81mg -BP 210/107 in ED - Labetalol 10mg IVP given with good response -MRI 12/19/18: * 1. Diffusion abnormality in the left thalamus compatible with relatively acute infarct. This shows increased signal on the T2 FLAIR compatible with nonreversible change. * 2. Multiple areas of increased signal within the subcortical and periventricular white matter likely representing small vessel ischemic demyelination change. * 3. No additional abnormalities appreciated. -Carotid artery US 12/19/18: No plaque identified. No abnormality noted. -Echo obtained 12/19/18: * 1. LVEF, by visual estimation, is 50%. * 2. Mildly dilated left atrium. * 3. Mildly dilated right atrium. * 4. Aortic valve is structurally normal and tricuspid. * 5. Mild aortic valve regurgitation. * 6. Mild to moderate mitral valve regurgitation. * 7. The mitral valve is normal in structure. * 8. Mild tricuspid valve regurgitation. * 9. No intracavity filling defects or infracardiac shunts. -RENT CONTROL OFFICE MANAGER Consult: No concerns -Lipid panel: Triglycerides 56, total cholesterol 215, LDL 142, HDL 75. -Reports she was on Zocor, name brand prior. She had tried simvastatin which "did not work" and was switched to name brand Zocor with good results. -Start crestor 10mg at bedtime -PT/OT: No concerns -A1C 6.2 -Passed nursing bedside swallow eval so will remove NPO status -Neuro checks as ordered HTN -Acute on chronic -Permissive HTN for first 24 hrs -BP 210/107 in ED - Labetalol 10mg IVP given with good response -BP meds were recently discontinued by PCP per patient -Start HCTZ 12.5mg daily -Lisinopril 2.5mg daily -PRN HTN meds as ordered Chronic: HTN HLD Recurrent UTIs "pre-diabetic" Anemia Psoriasis Plan: Admit to medical floor observation status with telemetry Other orders as indicated above Routine AM labs PT/OT CM/SW for discharge planning Spiritual care consult DVT prophylaxis: SCDs Code status: CRP only; PCP: None locally - she is visiting from [place] Mariella was brought in for a CVA and HTN. She had mostly recovered once admitted to the floor. 325mg ASA was given in the ED. CT scan in the ED showed nothing acute as above. NIH score of 2 was noted and neurology from [facility] recommended we admit patient for routine stroke care. He suggested transfer and TPA are not indicated. MRI was obtained as above on the floor and noted a diffusion abnormality in the left thalamus compatible with a fairly recent infarct. Carotid US was obtained and showed no plaque. Lipid panel was obtained showing elevated HLD but also an elevated LDL as above. She reports she had lost 35 lbs of weight and her medications were discontinued a few months ago because of this. She will be started on Crestor 10mg at bedtime on discharge. She was evaluated by PT/OT and RENT CONTROL OFFICE MANAGER with no concerns noted. Echo was obtained as above. She reports she is pre-diabetic and A1C was checked and found to be 6.2 Her BP was very high in the ED at 210/107. Permissive HTN was exercised in the first 24 hours. She was started on HCTZ 12.5mg and lisinopril 2.5mg daily for BP control. On discharge she had no deficit noted and reported she felt almost back to normal. She was prescribed 81mg daily ASA, victoza 0.6mg subQ daily for 1 week and then 1.2mg subq daily thereafter, Lisinopril 10mg daily with parameters to hold if BP is at or below 100/60, Crestor 10mg at bedtime daily, HCTC 12.5mg BID at 0700 and 1800 with parameters to hold if BP is at or less than 100/60. She was also prescribed janument 1 tablet daily with food. Destin score was 0. She was advised to return to the ED or contact 911 should symptoms return or worsen. She was instructed to follow-up with her PCP within one week of discharge. - Patient Instructions Diet: Heart Healthy Diet, Usual Diet as Tolerated, Low Sodium, Weight Loss Diet Activity: As Tolerated Activity, Other: Excersise regularly Driving: May Drive Today Showering/Bathing: May Shower Notify Provider of: Fever, Increased Pain, Swelling and Redness, Nausea and/or Vomiting Other/Special Instructions: - Please take all new medications as directed. - Resume all home medications. - Check your vitals (blood pressure and heart rate ) and follow parameters before taking blood pressure medications. - Continue routine activities as per PT/OT. - Recommend you integrate physical activity with your dietary weight loss. - Call or follow up with your PCP for any questions or concerns after discharge. - Follow up with your PCP in 1 week. - Call 911 or come back and seek immediate care at the nearest medical facility should your symptoms persist or get worse - Discharge Plan *PRESCRIPTION DRUG MONITORING PROGRAM REVIEWED*: Not Applicable *COPY OF PRESCRIPTION DRUG MONITORING REPORT IN PATIENT LAUREN: Not Applicable Prescriptions/Med Rec: Aspirin [Halfprin] 81 mg PO DAILY #30 tab.ec hydroCHLOROthiazide [Hydrochlorothiazide] 12.5 mg PO ASDIRECTED #60 cap Liraglutide [Victoza 3-Caleb] 18 mg SQ ASDIRECTED #1 pen Lisinopril 10 mg PO DAILY #30 tablet Rosuvastatin [Crestor] 10 mg PO BEDTIME #30 tablet sitaGLIPtin Phos/Metformin HCl [Janumet Xr 100-1,000 mg Tablet] 1 each PO DAILY #30 tbmp.24hr Home Medications: Home Meds Aspirin [Halfprin] 81 mg PO DAILY #30 tab.ec 12/19/18 [Rx] Liraglutide [Victoza 3-Caleb] 18 mg SQ ASDIRECTED #1 pen 12/19/18 [Rx] Lisinopril 10 mg PO DAILY #30 tablet 12/19/18 [Rx] Rosuvastatin [Crestor] 10 mg PO BEDTIME #30 tablet 12/19/18 [Rx] hydroCHLOROthiazide [Hydrochlorothiazide] 12.5 mg PO ASDIRECTED #60 cap [Rx] sitaGLIPtin Phos/Metformin HCl [Janumet Xr 100-1,000 mg Tablet] 1 each PO DAILY #30 tbmp.24hr 12/19/18 [Rx] Oxygen Therapy Mode: Room Air Patient Handouts: Prediabetes, Stroke Prevention, Ischemic Stroke, [id number] , Hypertension, Tzut-we-Qmvi, Fat and Cholesterol Restricted Diet, [id number] , Obesity, Adult, Uobt-vi-Ivzt, High Cholesterol Referrals: PCP,Not In Area [Primary Care Provider] - - Discharge Summary/Plan Comment DC Time >30 min.: Yes (40 minutes ) - General Info Date of Service: 12/20/18 Admission Dx/Problem (Free Text: Admission Diagnosis/Problem Admission Diagnosis/Problem Cerebrovascular accident Subjective Update: In to see Mariella. She is sitting up in bed. She has no concerns and says she feels pretty much back to normal. We discussed her discharge. Dr. Wagner is imputing her discharge medications and has been in to discuss these with her. No patient or nursing concerns. All tests have returned. She will be discharged today. Functional Status: Reports: Pain Controlled, Tolerating Diet, Ambulating, Urinating. Denies: New Symptoms - Review of Systems General: Reports: No Symptoms. Denies: Fever, Weakness, Fatigue, Malaise, Chills HEENT: Reports: No Symptoms. Denies: Headaches, Sore Throat Pulmonary: Reports: No Symptoms. Denies: Shortness of Breath, Cough, Sputum, Wheezing Cardiovascular: Reports: Palpitations (occasional PVC on monitor which correlates with her sensation). Denies: Chest Pain, Dyspnea on Exertion, Edema , Lightheadedness Gastrointestinal: Reports: No Symptoms. Denies: Abdominal Pain, Constipation, Nausea, Vomiting Genitourinary: Reports: No Symptoms. Denies: Pain Musculoskeletal: Reports: No Symptoms Skin: Reports: No Symptoms. Denies: Cyanosis Neurological: Reports: No Symptoms. Denies: Confusion, Dizziness, Headache, Numbness, Seizure, Tingling, Tremors, Trouble Speaking, Difficulty Walking, Weakness, Change in Speech, Gait Disturbance Psychiatric: Reports: No Symptoms - Patient Data Vitals - Most Recent: Last Vital Signs Temp 98.8 F 12/20/18 03:40 Pulse 73 12/20/18 03:40 Resp 16 12/20/18 03:40 BP 123/90 12/20/18 03:40 Pulse Ox 97 12/20/18 03:40 Weight - Most Recent: 177 lb 4.8 oz I&O - Last 24 hours: Intake & Output 12/19/18 12/20/18 12/20/18 22:59 06:59 14:59 Intake Total 700 300 Output Total 1600 Balance -900 300 Lab Results - Last 24 hrs: Laboratory Results - last 24 hr 12/19/18 12/20/18 12/20/18 Range/Units 05:45 05:41 05:41 WBC 7.80 (3.98-10.04) K/mm3 RBC 4.32 (3.98-5.22) M/mm3 Hgb 13.0 (11.2-15.7) gm/L Hct 40.0 (34.1-44.9) % MCV 92.6 (79.4-94.8) fl MCH 30.1 (25.6-32.2) pg MCHC 32.5 (32.2-35.5) g/dl RDW Std Deviation 43.0 (36.4-46.3) fL Plt Count 240 (182-369) K/mm3 MPV 10.6 (9.4-12.3) fl Neut % (Auto) 55.0 (34.0-71.1) % Lymph % (Auto) 31.7 (19.3-51.7) % [place] % (Auto) 10.3 (4.7-12.5) % Eos % (Auto) 2.2 (0.7-5.8) Baso % (Auto) 0.5 (0.1-1.2) % Neut # (Auto) 4.30 (1.56-6.13) K/mm3 Lymph # (Auto) 2.47 (1.18-3.74) K/mm3 [place] # (Auto) 0.80 H (0.24-0.36) K/mm3 Eos # (Auto) 0.17 (0.04-0.36) K/mm3 Baso # (Auto) 0.04 (0.01-0.08) K/mm3 Sodium 137 (136-145) mEq/L Potassium 3.7 (3.5-5.1) mEq/L Chloride 103 (98-107) mEq/L Carbon Dioxide 23 (21-32) mEq/L Anion Gap 14.7 (5-15) BUN 16 (7-18) mg/dL Creatinine 0.8 (0.55-1.02) mg/dL Est Cr Clr Drug Dosing 54.24 mL/min Estimated GFR (MDRD) > 60 (>60) mL/min BUN/Creatinine Ratio 20.0 H (14-18) Glucose 131 H (80-115) mg/dL Hemoglobin A1c 6.20 (4.50-6.20) % Calcium 8.8 (8.5-10.1) mg/dL Magnesium 2.0 (1.8-2.4) mg/dl Med Orders - Current: Current Medications Acetaminophen (Tylenol) 650 mg PO Q4H PRN PRN Reason: Pain (Mild 1-3)/fever Hydrocodone Bitart/Acetaminophen ([place] 325-5 Mg) 1 tab PO Q4H PRN PRN Reason: Pain (moderate 4-6) Albuterol/Ipratropium (Duoneb 3.0-0.5 Mg/3 Ml) 3 ml NEB Q4H PRN PRN Reason: Shortness Of Breath/wheezing Aspirin (Halfprin) 81 mg PO DAILY [facility] Last Admin: 12/19/18 08:14 Dose: 81 mg Bisacodyl (Dulcolax) 5 mg PO DAILY PRN PRN Reason: Constipation Docusate Sodium (Colace) 100 mg PO BID PRN PRN Reason: Constipation Hydrochlorothiazide (Hydrochlorothiazide) 12.5 mg PO DAILY [facility] Last Admin: 12/19/18 08:14 Dose: 12.5 mg Hydromorphone HCl (Dilaudid) 0.25 mg IVPUSH Q2H PRN PRN Reason: Pain (severe 7-10) Labetalol HCl (Normodyne) 10 mg IVPUSH Q6H PRN; Protocol PRN Reason: Hypertension Lisinopril (Prinivil) 2.5 mg PO DAILY [facility] Last Admin: 12/19/18 08:14 Dose: 2.5 mg Lorazepam (Ativan) 0.5 mg IV Q6H PRN PRN Reason: Anxiety Magnesium Sulfate (Pharmacy To Dose - Magnesium Replacement) 0 dose .XX ASDIRECTED PRN PRN Reason: RX TO WATCH MAG Metoprolol Tartrate (Lopressor) 5 mg IVPUSH Q4H PRN PRN Reason: Tachycardia Ondansetron HCl (Zofran) 4 mg IV Q6H PRN PRN Reason: Nausea/Vomiting Polyethylene Glycol (Miralax) 17 gm PO DAILY PRN PRN Reason: Constipation Potassium Chloride (Pharmacy To Dose - Potassium Replacement) 0 dose .XX ASDIRECTED PRN PRN Reason: RX TO WATCH K Rosuvastatin Calcium (Crestor) 10 mg PO BEDTIME [facility] Last Admin: 12/19/18 20:31 Dose: 10 mg Senna/Docusate Sodium (Senna Plus) 1 tab PO BID PRN PRN Reason: Constipation Temazepam (Restoril) 7.5 mg PO BEDTIME PRN PRN Reason: Sleep Discontinued Medications Aspirin (Aspirin) 324 mg PO ONETIME ONE Stop: 12/18/18 18:59 Last Admin: 12/18/18 19:30 Dose: 324 mg Hydralazine HCl (Apresoline) 20 mg IVPUSH Q4H PRN PRN Reason: Hypertension Hydrochlorothiazide (Hydrochlorothiazide) 12.5 mg PO BIDDIURETIC LYN Labetalol HCl (Normodyne) 10 mg IVPUSH ONETIME ONE; Protocol Stop: 12/18/18 18:55 Last Admin: 12/18/18 19:39 Dose: 10 mg Labetalol HCl (Normodyne) 15 mg IVPUSH Q6H PRN; Protocol PRN Reason: Hypertension Lisinopril (Prinivil) 10 mg PO DAILY [facility] Potassium Chloride (Klor-Con M20) 40 meq PO Q4H [facility] Stop: 12/19/18 02:01 Last Admin: 12/19/18 02:40 Dose: 40 meq - Exam Quality Assessment: Reports: DVT Prophylaxis General: Reports: Alert, Oriented, Cooperative, No Acute Distress HEENT: Reports: Pupils Equal, Pupils Reactive, EOMI, Mucous Membr. Moist/[place] Neck: Reports: Supple Lungs: Reports: Clear to Auscultation, Normal Respiratory Effort Cardiovascular: Reports: Regular Rate, Regular Rhythm, Other (Occasional PVC ) GI/Abdominal Exam: Normal Bowel Sounds, Soft, Non-Tender, No Distention, No Abnormal Bruit (Female) Exam: Deferred Rectal (Female) Exam: Deferred Back Exam: Reports: Normal Inspection, Full Range of Motion Extremities: Normal Inspection, Normal Range of Motion, Non-Tender, No Pedal Edema, Normal Capillary Refill Skin: Reports: Warm, Dry, Intact Neurological: Reports: No New Focal Deficit, Normal Gait, Normal Speech, Normal Tone, Strength Equal Bilateral, Sensation Intact, Cranial Nerves Intact Psy/Mental Status: Reports: Alert, Normal Affect, Normal Mood
[2018-12-20] MEDS: Aspirin 81 MG Tab.EC PO SCH (08:08)
[2018-12-20] MEDS: Lisinopril 2.5 MG Tab PO SCH (08:09)
[2018-12-20] MEDS: Hydrochlorothiazide 12.5 MG Cap PO SCH (08:11)
== END 2018-12-20 13:32 | disposition home or self-care (01) | DRG 65 ==
LOC: JD.ED 17:05 → JD.MS 20:56 → OBSVTOIN 21:01 → INTOOBSV 21:01 → JD.MS 21:01 → UNDOADMOB 21:01 → OBSVTOIN 12-19 13:10
PROVIDERS: ADMIT Internal Medicine; ATTEND Internal Medicine
DX: I63.9 Cerebral infarction, unspecified (principal); G81.91 Hemiplegia, unspecified affecting right dominant side; R47.9 Unspecified speech disturbances; R29.702 NIHSS score 2; R20.0 Anesthesia of skin; E78.5 Hyperlipidemia, unspecified; R47.01 Aphasia; R73.03 Prediabetes; E66.9 Obesity, unspecified; H54.7 Unspecified visual loss; E78.00 Pure hypercholesterolemia, unspecified; I10 Essential (primary) hypertension; D64.9 Anemia, unspecified; R53.1 Weakness; R06.02 Shortness of breath; L40.9 Psoriasis, unspecified; Z91.013 Allergy to seafood; Z91.040 Latex allergy status; Z87.440 Personal history of urinary (tract) infections; Z90.710 Acquired absence of both cervix and uterus; Z88.0 Allergy status to penicillin; Z68.32 Body mass index [BMI] 32.0-32.9, adult
CPT/HCPCS: 36415 ×2; 70450; 70551; 71045; 80048; 80053; 80061; 82962; 83036; 83735; 84484; 85025 ×2; 85610; 85730; 92610; 93005; 93306; 93880; 96374; 97161; 97165; 99285; A9270 ×6; J3490; 93010; 99283